=== PATIENT | female | born 1965 | race Caucasian/White ===

== ENCOUNTER → 2018-10-08 | Outpatient (CLI) | payer OTHER ==
[~2018-10-08] MED LIST: CIPROFLOXACIN500 M3 GT; CODEINE; COLACE100 MG PO; JUICE PLUS; KEFLEX500 MG PO; LORTAB 5 MG/5001 TA1 PO; OMEGA-3 FISH O1 EAC3 PO
== END ==
LOC: CAT 07:44
DX: K57.30 Diverticulosis of large intestine without perforation or abscess without bleeding (principal); M43.17 Spondylolisthesis, lumbosacral region; M48.07 Spinal stenosis, lumbosacral region